=== PATIENT | female | born 1985 | race African-American/Black ===

== ENCOUNTER 2023-01-17 23:09 | Emergency (ER) | payer SELFPAY ==
[~2023-01-17] VITALS: Ht 154.9 cm; Wt 52.0 kg
[2023-01-17 23:17] VITALS: BP 169/109; TEMP 98.5; O2SAT 100
[2023-01-17 23:19] VITALS: PULSE 88; RESP 16
[2023-01-18 00:32] LABS: BASOPHILS % 0.7 % (0.0-2.0); EOSINOPHILS % 8.1 % (0.0-5.0); HEMATOCRIT. 28.5 % (36.0-48.0); HEMOGLOBIN. 8.7 g/dL (12.0-16.0); LYMPHOCYTES % 28.4 % (20.0-50.0); MEAN CORPUSCULAR HEMOGLOBIN 20.8 pg (28.0-32.0); MEAN CORPUSCULAR HGB CONC 30.5 g/dL (31.0-37.0); MEAN CORPUSCULAR VOLUME 68.1 fL (81.0-99.0); NEUTROPHILS % 56.8 % (40.0-76.0); PLATELET 425 x1000/uL (130-400); RED BLOOD CELL COUNT 4.19 mill/uL (4.2-5.4); RED CELL DISTRIBUTION WIDTH 19.2 % (11.6-14.6)
[2023-01-18 00:39] LABS: CHLORIDE 108 mEq/L (98-107); INDEX HEMOLYSI 1 (1-3); INDEX ICTERIC 1 (1-4); INDEX LIPEMIC 1 (1-3); POTASSIUM 3.5 mEq/L (3.5-5.1); SODIUM 137 mEq/L (136-145)
[2023-01-18 00:46] LABS: ALANINE AMINOTRANSFERASE 21 IU/L (13-61); ALBUMIN 3.5 g/dL (3.4-5.0); ASPARTATE AMINOTRANSFERASE 13 IU/L (15-37); BILIRUBIN TOTAL 0.4 mg/dL (0.1-1.0); CALCIUM 8.7 mg/dL (8.5-10.1); CARBON DIOXIDE 27 mEq/L (21-32); CREATININE 0.9 mg/dL (0.6-1.3); GLUCOSE 88 mg/dL (70-105); PROTEIN TOTAL 7.4 g/dL (6.0-8.3); UREA NITROGEN BLOOD 10 mg/dL (7-21)
[2023-01-18 00:49] LABS: ADD RBC MORPHOLOGY YES; DIFFERENTIAL COMMENT 1
[2023-01-18 00:56] LABS: HCG SCREEN NEGATIVE
[2023-01-18 03:44] LABS: PLATELET ESTIMATE SLIGHTLY INCREASED
[2023-01-18 03:45] LABS: HYPOCHROMASIA 1+; MICROCYTOSIS 2+
== END 2023-01-18 05:21 | disposition left against medical advice (07) ==
LOC: ER 23:09
DX: R10.9 Unspecified abdominal pain (principal); Z53.21 Procedure and treatment not carried out due to patient leaving prior to being seen by health care provider
CPT/HCPCS: 36415; 80053; 84703; 85025; 93005; 99281